=== PATIENT | male | born 1980 | race Caucasian/White ===

== ENCOUNTER 2016-10-31 04:25 | Observation (INO) | payer OTHER ==
[~2016-10-31] VITALS: Ht 182.9 cm; Wt 135.0 kg
--- NOTE | 2016-10-31 04:58 | EMERGENCY ROOM VISIT NOTE ---
History Report prepared by Tala: Cedric English Under the Supervision of: Dr. Andrey Franks M.D. First contact with patient: 04:35 Chief Complaint: CHEST PAIN Stated Complaint: CHEST TIGHTNESS, UNUSUAL FEELING IN ARM,SWEATY History of Present Illness The patient is a 36 year old male who presents to the Emergency Room with complaints of chest pains that the patient began to experience one hour ago. The patient states that he started to feel a discomfort and "tightness" in his chest while he was standing at work this evening. He also notes a "weird" feeling shooting down his right arm. After his chest pain onset he sat down to have a bowel movement and became diaphoretic. He admits to becoming anxious. He denies any history of hypertension, cardiac disease, or diabetes. He is a smoker. 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 A total of 10 systems reviewed and were otherwise negative. Past Medical & Surgical Patient denies any pertinent surgical/family histories. Family History Diabetes mellitus FHx: cancer Social History Marital Status: single Housing Status: lives with family Occupation Status: employed Current/Historical Medications No Active Prescriptions or Reported Meds Allergies Coded Allergies: No Known Allergies (Verified , 10/31/16) Physical Exam Vital Signs Date Time Temp Pulse Resp B/P Pulse Ox O2 Delivery O2 Flow Rate FiO2 10/31/16 06:55 63 10/31/16 06:55 68 16 149/99 97 Room Air 10/31/16 06:38 73 18 156/102 96 Room Air 10/31/16 05:30 65 18 147/99 98 Room Air 10/31/16 05:09 65 18 137/96 96 Room Air 10/31/16 04:42 100 Room Air 10/31/16 04:42 100 Room Air 10/31/16 04:41 66 10/31/16 04:37 62 16 154/99 99 Room Air 10/31/16 04:29 36.5 64 20 180/113 98 Room Air Physical Exam GENERAL: Patient is mildly anxious appearing and in no acute distress. HEENT: No acute trauma, normocephalic atraumatic, mucous membranes moist, no nasal congestion, no scleral icterus. NECK: No stridor, no adenopathy, no meningismus, trachea is midline. LUNGS: No dyspnea. Clear to auscultation and equal bilaterally. No wheeze, no rhonchi. HEART: Regular rate and rhythm. No murmurs, rubs, gallops appreciated. ABDOMEN: Soft, nontender, bowel sounds positive, no masses appreciated, no peritonitis. BACK: No midline tenderness, no CVA tenderness EXTREMITIES: Normal motion all extremities, no cyanosis, no edema. NEUROLOGIC: Alert and oriented, no acute motor or sensory deficits, no focal weakness, cranial nerves grossly intact. SKIN: No rash, no jaundice, no diaphoresis. Medical Decision & Procedures ER Provider Diagnostic Interpretation: Radiology results and stated below per my review and radiologist interpretation: CHEST X-RAY: X ray results are stated below per my interpretation: Chest: 1 view: No infiltrate, no effusion, normal cardiac border. Laboratory Results 10/31/16 04:41 Red Blood Count 5.13, Mean Corpuscular Volume 87.1, Mean Corpuscular Hemoglobin 31.4, Mean Corpuscular Hemoglobin Concent 36.0, Mean Platelet Volume 9.8, Neutrophils (%) (Auto) 41.9, Lymphocytes (%) (Auto) 44.8, Monocytes (%) (Auto) 5.9, Eosinophils (%) (Auto) 6.5, Basophils (%) (Auto) 0.4, Neutrophils # (Auto) 3.34, Lymphocytes # (Auto) 3.57, Monocytes # (Auto) 0.47, Eosinophils # (Auto) 0.52, Basophils # (Auto) 0.03 10/31/16 04:41 Test 10/31/16 04:41 10/31/16 04:46 10/31/16 04:49 10/31/16 06:23 White Blood Count 7.97 K/uL (4.8-10.8) Red Blood Count 5.13 M/uL (4.7-6.1) Hemoglobin 16.1 g/dL (14.0-18.0) Hematocrit 44.7 % (42-52) Mean Corpuscular Volume 87.1 fL (80-100) Mean Corpuscular Hemoglobin 31.4 pg (25-34) Mean Corpuscular Hemoglobin Concent 36.0 g/dl (32-36) Platelet Count 209 K/uL (130-400) Mean Platelet Volume 9.8 fL (7.4-10.4) Neutrophils (%) (Auto) 41.9 % Lymphocytes (%) (Auto) 44.8 % Monocytes (%) (Auto) 5.9 % Eosinophils (%) (Auto) 6.5 % Basophils (%) (Auto) 0.4 % Neutrophils # (Auto) 3.34 K/uL (1.4-6.5) Lymphocytes # (Auto) 3.57 K/uL (1.2-3.4) Monocytes # (Auto) 0.47 K/uL (0.11-0.59) Eosinophils # (Auto) 0.52 K/uL (0-0.5) Basophils # (Auto) 0.03 K/uL (0-0.2) RDW Standard Deviation 41.9 fL (36.4-46.3) RDW Coefficient of Variation 13.0 % (11.5-14.5) Immature Granulocyte % (Auto) 0.5 % Immature Granulocyte # (Auto) 0.04 K/uL (0.00-0.02) Est Creatinine Clear Calc Drug Dose 167.8 ml/min Estimated GFR () 128.1 Estimated GFR (Non- 110.5 BUN/Creatinine Ratio 11.2 (10-20) Calcium Level 9.1 mg/dl (8.5-10.1) Bedside D-Dimer 129 ng/mlFEU (0-450) Bedside Hemoglobin 15.3 g/dl (14.0-18.0) Bedside Hematocrit 45 % (42-52) Bedside Sodium 138 mEq/L (135-144) Bedside Potassium 3.6 mEq/L (3.3-5.0) Bedside Chloride 102 mEq/L (101-112) Bedside Total CO2 25 mEq/l (24-31) Anion Gap 15.0 mmol/L (16-25) Bedside Blood Urea Nitrogen 8 mg/dl (7-18) Bedside Creatinine 0.8 mg/dl (0.6-1.3) Bedside Glucose (other) 106 mg/dl (70-99) Bedside Ionized Calcium (Griselda) 1.15 mmol/l (1.12-1.32) Bedside Troponin I 0.060 ng/ml (0-0.045) Test 10/31/16 06:50 10/31/16 06:55 Laboratory results as reviewed by me. Medications Administered Medications (Trade) Dose Ordered Sig/Guerda Route Start Time Stop Time Status Last Admin Dose Admin Nitroglycerin (Nitrostat Tab) 0.4 mg PRN PRN SL 10/31/16 05:15 11/30/16 05:14 10/31/16 05:19 0.4 MG Ketorolac Tromethamine (Toradol Inj) 30 mg NOW STAT IV 10/31/16 05:28 10/31/16 05:29 DC 10/31/16 05:28 30 MG Aspirin (Aspirin Chew) 324 mg NOW STAT PO 10/31/16 06:42 10/31/16 06:43 DC 10/31/16 06:42 324 MG ECG Indication: chest pain Rate (beats per minute): 60 Rhythm: normal sinus Findings: no acute ischemic change, no ectopy ED Course 0437: The patient was evaluated in room B9. A complete history and physical exam was performed. 0515: Ordered Nitroglycerin 0.4 mg SL 0528: The patient states that the nitroglycerin did not relieve his right elbow pain. 0528: Ordered Toradol 30 mg IV. 0640: Reevaluated the patient. Doing well. Positive trop. Will await Hospitalist evaluation. Medical Decision Differential: Cardiac Ischemia (STEMI, NSTEMI, Unstable Angina, etc), Aortic Dissection, Arrhythmia, Pulmonary Embolism, Pneumonia, Pneumothorax, MSK, Infectious, Pericarditis/Myocarditis, Esophageal Rupture, Gastrointestinal, amongst other pathologies entertained. 36 yr old male overwieght smoker arrives with compalint of right chest pain radiating to right arm after near syncope while having bowel movement. Recent travel thus Dimer done which wnl and I do not feel requires CT PE per [facility]. CXR wnl and no evidence of dissection. Excellent pulses right arm and no swelling thus I do not feel arterial/venous occlusion. Initial EKG normal and trop wnl. Of not SLNTG was given without improvement. Toradol given with improvement. Vitals stable, patient looks well and no other acute findings. No headache, neck pain, weakness, vision changes, etc thus I do not feel neuro imaging indicated. Repeat 90 minute Trop returned elevated. Patient stable. Repeat EKG done reveals similar symptoms to initial. Aspirin given as symptoms not consistent with dissection and patient will come in for cardiac rule out and evaluation. Will hold on empiric Heparinization as trop elevation may be from transient hypotension when he had near-syncope earlier and non-classical ACS symptoms. Impression Primary Impression: Elevated troponin Additional Impressions: Right-sided chest pain Arm paresthesia, right Near syncope Scribe Attestation The scribe's documentation has been prepared under my direction and personally reviewed by me in its entirety. I confirm that the note above accurately reflects all work, treatment, procedures, and medical decision making performed by me. Departure Information Dispostion Home / Self-Care Prescriptions No Active Prescriptions or Reported Meds Referrals [place] Leonardo M.D. (PCP) Patient Instructions My [facility] Problem Qualifiers
[2016-10-31 04:59] LABS: BASO % 0.4 %; BASO ABS # 0.03 K/uL (0-0.2); COMPLETE YES; EOS % 6.5 %; HEMATOCRIT 44.7 % (42-52); IG% 0.5 %; LYMPH % 44.8 %; LYMPH ABS # 3.57 K/uL (1.2-3.4); MEAN CELL VOLUME 87.1 fL (80-100); MEAN CORPUSCULAR HEMOGLOBIN 31.4 pg (25-34); MEAN PLATELET VOLUME 9.8 fL (7.4-10.4); MONO % 5.9 %; NEUT % 41.9 %; PLATELET COUNT 209 K/uL (130-400); RED BLOOD COUNT 5.13 M/uL (4.7-6.1); WHITE BLOOD COUNT 7.97 K/uL (4.8-10.8)
[2016-10-31 05:02] LABS: ISTAT CREATININE 0.8 mg/dl (0.6-1.3); ISTAT HEMOGLOBIN 15.3 g/dl (14.0-18.0); ISTAT IONIZED CALCIUM 1.15 mmol/l (1.12-1.32)
[2016-10-31 05:05] LABS: POINT OF CARE TROPONIN I 0.02 ng/ml (0-0.045)
[2016-10-31 05:15] LABS: BLOOD UREA NITROGEN 10 mg/dl (7-18); BUN/CREATININE RATIO 11.2 (10-20); CALCIUM 9.1 mg/dl (8.5-10.1); CARBON DIOXIDE 28 mmol/L (21-32); CHLORIDE 106 mmol/L (98-107); CREATININE 0.85 mg/dl (0.60-1.40); GLUCOSE 102 mg/dl (70-99); POTASSIUM 3.6 mmol/L (3.5-5.1); SODIUM 142 mmol/L (136-145)
[2016-10-31] MEDS ORDERED: NITROGLYCERIN 0.4 MG SL PER TAB CHARGE SL PRN ×2 (05:15→07:00)
[2016-10-31] MEDS ORDERED: KETOROLAC TROMETHAMINE 30 MG/ML VIAL IV STA (05:28)
[2016-10-31] MEDS ORDERED: ASPIRIN 324 MG CHEW PO STA (06:42)
--- NOTE | 2016-10-31 06:58 | DIAGNOSTIC IMAGING REPORT ---
CHEST ONE VIEW PORTABLE CLINICAL HISTORY: Atypical chest pain COMPARISON STUDY: No previous studies for comparison. FINDINGS: The cardiac and mediastinal contours are normal. There is no evidence of focal pulmonary consolidation. There is no evidence of failure. No pleural effusions are visualized.[ IMPRESSION: No active disease in the chest. Electronically signed by: Jason Brown M.D. 10/31/2016 6:56 AM Dictated Date/Time: 10/31/2016 6:56 AM
[2016-10-31] MEDS ORDERED: KETOROLAC TROMETHAMINE 30 MG/ML VIAL IV PRN (07:00)
[2016-10-31] MEDS ORDERED: ONDANSETRON INJ 2 MG/ML 2 ML VIAL IV PRN (07:00)
[2016-10-31] MEDS ORDERED: ALUMINUM/MAGNESIUM/SIMETH (MAALOX MAX) 30 ML UDC PO PRN (07:00)
[2016-10-31] MEDS ORDERED: POLYETHYLENE (MIRALAX) 17 GM PACK PO PRN (07:00)
[2016-10-31] MEDS ORDERED: MoRPHine SULFATE 2 MG/ML CARP IV PRN (07:00)
[2016-10-31] MEDS ORDERED: ACETAMINOPHEN 325 MG TAB PO PRN (07:00)
[2016-10-31] MEDS ORDERED: MAGNESIUM HYDROXIDE SUSP 30 ML UDC PO PRN (07:00)
[2016-10-31] MEDS ORDERED: MoRPHine SULFATE 4 MG/ML 1 ML CARP\\VIAL IV PRN (07:00)
[2016-10-31] MEDS ORDERED: IV FLUIDS COMPLETED PRN (07:00)
[2016-10-31 07:06] LABS: PROTHROMBIN TIME (PATIENT) 10.7 SECONDS (9.0-12.0)
[2016-10-31 07:28] LABS: C-REACTIVE PROTEIN 0.4 mg/dl (0-0.29); MAGNESIUM 2.1 mg/dl (1.8-2.4)
[2016-10-31 08:30] VITALS: O2SAT 95; Ht 182.9 cm; Wt 135.0 kg
[2016-10-31 11:50] VITALS: BP 128/64; PULSE 56; TEMP 36.8; O2SAT 98
[2016-10-31] MEDS ORDERED: GI COCKTAIL PO ONE (13:00)
[2016-10-31] MEDS ORDERED: ALUMINUM/MAGNESIUM SUSP 18 ML, LIDOCAINE HCL 2% VISCOUS SOLN 6 ML, BARCODE IDENTIFIER 1 EA PO ONE ×2 (13:30)
--- NOTE | 2016-10-31 15:20 | Discharge Instructions ---
Discharge Instructions Date of Service October 31, 2016. Admission Reason for Admission: Elevated Troponin Discharge Discharge Diagnosis / Problem: non cardiac chest pain, elevated troponin, negative stress test Discharge Goals Goal(s): Diagnostic testing, Therapeutic intervention Activity Recommendations Activity Limitations: resume your previous activity . Current Hospital Diet Patient's current hospital diet: Discharge Diet Recommended Diet: Regular Diet Pending Studies Studies pending at discharge: no Medical Emergencies . Who to Call and When: Medical Emergencies: If at any time you feel your situation is an emergency, please call 911 immediately. . Non-Emergent Contact Non-Emergency issues call your: Primary Care Provider . . "Provider Documentation" section prepared by Frank Crane. . District Scout Executive Recommendations District Scout Executive Recommendations: Please stop smoking and begin a moderate exercise program please take over the counter zantac or pepcid for one week to see if symptoms resolve VTE Core Measure Inpt VTE Proph given/why not?: Treatment not indicated
[2016-10-31 15:29] VITALS: BP 141/89; PULSE 72; TEMP 36.7; O2SAT 95
--- NOTE | 2016-10-31 15:35 | CARDIOLOGY CONSULTATION ---
DATE OF CONSULTATION: 10/31/2016 PERTINENT HISTORY: Mr. Chopra is a 36-year-old white male without significant past medical history, admitted earlier today with a chest pain syndrome. This consultation was ordered to assist in his management. The patient claims he was in his usual state of health while at work last evening. He had onset of a "pressure and heaviness" in his chest which radiated to his left shoulder and upper arm. He noticed some nausea and diaphoresis for several minutes and therefore, presented to the Emergency Room for further care. The patient had no other associated symptoms such as shortness of breath or palpitations. The patient has never experienced exertional chest pain previously. Although, not following a routine exercise program, he is actually on daily basis caring for his home and property. Again, he has never experienced exertional chest discomfort or limiting dyspnea. He further denies syncope, presyncope, PND, orthopnea, lower extremity edema, and claudication. Currently, the patient is resting comfortably in bed. Still experiencing a vague discomfort in his chest and left upper extremity. PAST MEDICAL HISTORY: None. MEDICATIONS: 1. Aspirin 81 mg per day. ALLERGIES: None. SOCIAL HISTORY: The patient is single and lives alone. Admits to smoking 1-1/2 pack of cigarettes daily for the last 20 years. Alcohol use is occasional. FAMILY HISTORY: Parents and siblings are alive and well. No history of early coronary artery disease. REVIEW OF SYSTEMS: A 10-point review of systems is negative except for that described above. PHYSICAL EXAMINATION: GENERAL: This is an obese white male lying supine in bed without complaints. VITAL SIGNS: Blood pressure is 122/64 with a regular pulse of 56. Respiratory rate is 18. The patient is afebrile at 36.8 degrees Celsius. Saturation 90% on room air. HEENT: Negative. NECK: Supple with full carotid upstrokes. There are no carotid bruits. Jugular venous pressure is flat at 90 degrees. There is no thyromegaly. CARDIOVASCULAR: Reveals a regular rhythm with a normal S1 and S2. No S3, S4, or murmurs are noted. LUNGS: Clear without rales, rhonchi, or wheezes. ABDOMEN: Soft and nontender without bruits. EXTREMITIES: Reveal intact radial artery pulses bilaterally. There is no peripheral edema. DATA: CBC notes hemoglobin 15.3, hematocrit 45.0, white count 7.9, platelet count 209,000. Electrolytes note a sodium of 138, potassium 3.6, chloride 102, bicarbonate 25, BUN 8, creatinine 0.8, glucose 106. Initial troponin was 0.02 with followup values of 0.06 and 0.067. Two EKGs note sinus rhythm without abnormalities. Chest x-ray shows no acute disease. IMPRESSION: Mr. Keysha arriaga has a history of atypical for classic angina pectoris. However, there is some minor elevation in his troponin I level. This will be investigated further with a stress echocardiogram. PLAN: 1. Agree with addition of aspirin to his medical regimen. 2. Stress echocardiogram. 3. Further recommendations depending on his clinical course.
[2016-10-31] MEDS ORDERED: PERFLUTREN LIPID MICROSPHERE (DEFINITY) IV ONE (15:38)
[2016-10-31 15:51] VITALS: BP 141/89; PULSE 72; TEMP 36.7; O2SAT 95
--- NOTE | 2016-10-31 16:44 | EXERCISE STRESS ECHO ---
*NOTICE TO RECEIVING REPUBLICAN AGENCY This information is strictly Confidential and protected under [place] law. [place] law prohibits you from making any further disclosure of this information unless further disclosure is expressly permitted by the written consent of the person to whom it pertains or is authorized by law. A general authorization for the release of medical or other information is not sufficient for this purpose. Hospital accepts no responsibility if the information is made available to any other person, INCLUDING THE PATIENT. Interpretation Summary * Name: DARIAN DUARTE Study Date: 10/31/2016 01:49 PM BP: 151/90 mmHg * Patient Location: .2E\S\E206\S\1 HR: 56 * : 1980 (M/d/yyyy) Gender: Male Height: 72 in * Age: 36 yrs Ethnicity: CA Weight: 298 lb * Ordering Physician: Frank Crane * Referring Physician: Self, Referred * Performed By: Crystal Rubin RDCS * * Reason For Study: CHEST PAIN, ELEVATED TROPONIN * BSA: 2.5 m2 * -- Conclusions -- * Normal stress echocardiogram at 9.7 METS and a peak heart rate of 87% predicted maximum. * No exercise induced chest pain. * No ECG changes. * Baseline echocardiogram notes normal left ventricular systolic function without wall motion abnormality. Procedure Details * ECHOEX, CPT #52236 * A contrast injection of Definity was performed to improve assessment of LV function. * Contrast was injected into an intravenous site in the left arm. * One vial of Definity ultrasound contrast was diluted in normal saline to a total volume of 10 ml. A total of '5' ml of solution was administered during imaging. * Lot # [id number] of Definity utilized for procedure. * Expiration date OCT 17. * The attending nurse who injected the contrast agent was SUJATA HO RN. Left Ventricle * The left ventricle is grossly normal size. * There is borderline concentric left ventricular hypertrophy. * Ejection Fraction = 55-60%. * Left ventricular systolic function is normal. * Resting wall motion: Normal. Stress wall motion: Appropriate increase in Left ventricular systolic function and decrease in cavity size. No stress induced segmental wall motion abnormalities. Right Ventricle * The right ventricle is grossly normal size. * The right ventricular systolic function is normal as assessed by tricuspid annular plane systolic excursion (TAPSE) (normal >1.5 cm). Atria * Borderline left atrial enlargement. * Right atrial size is normal. * There is no evidence of atrial septal defect, but resolution does not allow assessment for a patent foramen ovale. Mitral Valve * The mitral valve is grossly normal. * There is no mitral valve stenosis. * Significant mitral regurgitation is absent. Tricuspid Valve * The tricuspid valve is not well visualized. * There is no tricuspid stenosis. * Significant tricuspid regurgitation is absent. Aortic Valve * The aortic valve is not well visualized. * The aortic valve opens well. * No hemodynamically significant valvular aortic stenosis. * There is no significant aortic regurgitation. Pulmonic Valve * The pulmonic valve is not well visualized. Great Vessels * The aortic root is normal size. * The pulmonary is not well visualized. Pericardium * There is no pericardial effusion. Stress Parameters * Normal baseline electrocardiogram. * Patient developed a rate related RBBB at 130 bpm. Resolved in recovery phase. MMode 2D Measurements and Calculations IVSd 1.1 cm IVSs 1.6 cm LVIDd 6.0 cm LVIDs 4.5 cm LVPWd 0.90 cm LVPWs 1.3 cm IVS/LVPW 1.2 FS 25.4 % EDV(Teich) 180.5 ml ESV(Teich) 91.6 ml EF(Teich) 49.2 % EDV(cubed) 216.8 ml ESV(cubed) 90.1 ml EF(cubed) 58.5 % % IVS thick 49.6 % % LVPW thick 43.3 % LV mass(C)d 241.6 grams LV mass(C)dI 95.7 grams/m\S\2 LV mass(C)s 257.9 grams LV mass(C)sI 102.2 grams/m\S\2 SV(Teich) 88.9 ml SI(Teich) 35.2 ml/m\S\2 SV(cubed) 126.7 ml SI(cubed) 50.2 ml/m\S\2 Ao root diam 3.6 cm Ao root area 10.1 cm\S\2 LA dimension 3.7 cm LA/Ao 1.0 Doppler Measurements and Calculations MV E max calista 84.9 cm/sec MV A max calista 63.5 cm/sec MV E/A 1.3 MV dec time 0.22 sec Ao V2 max 105.0 cm/sec Ao max PG 4.4 mmHg Ao max PG (full) 1.2 mmHg LV V1 max PG 3.2 mmHg LV V1 max 89.7 cm/sec
--- NOTE | 2016-10-31 17:14 | Discharge Summary ---
Discharge Summary Date of Service October 31, 2016. Discharge Summary Admission Date: October 31, 2016 at 08:08 Discharge Date: October 31, 2016 Discharge Disposition: Home Principal Diagnosis: elevated troponin, negative stress test Consultations: Dr Clancy Medication Reconciliation Medication Profile: No Active Prescriptions or Reported Meds Discharge Exam Review of Systems: Constitutional: No chills, No fever Respiratory: No cough, No sputum Cardiovascular: No chest pain, No orthopnea Abdomen: No nausea, No pain, No vomiting Musculoskeletal: No joint pain, No muscle pain Physical Exam: General Appearance: WD/WN, no apparent distress Neck: supple, no JVD Respiratory/Chest: chest non-tender, lungs clear, normal breath sounds Cardiovascular: regular rate, rhythm, no murmur Abdomen / GI: normal bowel sounds, non tender, soft Neurologic/Psychiatric: alert, oriented x 3 Skin: normal color, no rash Hospital Course 36 M atypical chest pain, minor troponin elevation, did have cardiac stress test that was negative for unstable angina recommend stop smoking limit caffeine h2 juan m otc exercise program follow up with Dr mccoy in a week Total Time Spent: Less than 30 minutes This includes examination of the patient, discharge planning, medication reconciliation, and communication with other providers. Discharge Instructions Please refer to the electronic Patient Visit Report (Discharge Instructions) for additional information.
--- NOTE | 2016-10-31 17:46 | HISTORY & PHYSICAL EXAMINATION ---
DATE OF ADMISSION: 10/31/2016 REASON FOR OBSERVATION: Elevated troponin. HISTORY OF PRESENT ILLNESS: Mr. 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 When he began to have an uncomfortable feeling in his chest. The patient states that it was a "tightness." The patient states that he felt that he wanted to go to the bathroom and he went to the bathroom to have a bowel movement, he became diaphoretic. He said he began being worried about his symptoms. He is a smoker, but has no other health history, takes no medications. He presented to the ED rated unremarkable evaluation, however, did have an elevation in troponin 0.06. Upon my evaluation, the discomfort was almost resolved. He had no other complaints or problems. PAST MEDICAL HISTORY: Unremarkable. MEDICATIONS: None. SOCIAL HISTORY: He smokes 1/2 to 1 pack a day on and off for the last 20 years. He has quit many times but recurred. FAMILY HISTORY: Positive for diabetes and cancer. REVIEW OF SYSTEMS: Ten systems were reviewed and are negative unless listed above. Of note, patient did not have any unusual bowel habits. usually has daily bowel movement and there was nothing unusual about the bowel movement that happened nor did the bowel movement resolved his symptoms. PHYSICAL EXAMINATION: GENERAL: He is a pleasant gentleman. He is in no distress. VITAL SIGNS: Temperature 36.7, pulse 56, respirations 18, BP 128/64, O2 sat 90 on room air. HEENT: PERRL, EOMI. Oropharynx clear. NECK: Without lymphadenopathy. Trachea is midline. HEART: Regular without murmurs, clicks, rubs or gallops. LUNGS: Clear without wheezes or crackles. There is no reproducible discomfort to exam of the ribcage or torso. ABDOMEN: Normoactive bowel sounds, soft, nontender. EXTREMITIES: Without cyanosis, clubbing or edema. LABORATORY DATA: White count of 7, H\\T\\H 16 and 44, platelet count 209, BUN and creatinine is 8.8. His troponin that was repeated 0.06. A repeat 0.067. He had a chest x-ray which was unremarkable. He had a D-dimer which was normal at 129 and he has an EKG showing sinus rhythm. Because of patient's abnormal troponin, cardiology consult was undertaken and patient underwent stress test. ASSESSMENT: Elevated troponin with atypical chest pain symptoms. PLAN: The patient will undergo stress testing. wHICH was eventually negative. The patient was discharged home on recommendations for oral H2 blockers and follow up with Dr. Leonardo in 1 week. The patient was strongly counseled to stop smoking and began an exercise program for weight management. The patient given a work excuse for the remainder of the week. ESTEFANY
[2016-11-01] MEDS ORDERED: ASPIRIN 81 MG ECTAB PO SCH (09:00)
== END 2016-10-31 16:30 | disposition home or self-care (01) ==
LOC: ENRESERVDT → ENRESERVTM → C.EDB 04:28 → CANBEDREQ 07:10 → C.2E 08:08
PROVIDERS: ADMIT Internal Medicine; ATTEND Internal Medicine
DX: R07.89 Other chest pain (principal); R79.89 Other specified abnormal findings of blood chemistry; R55 Syncope and collapse; R20.2 Paresthesia of skin; F17.210 Nicotine dependence, cigarettes, uncomplicated; Z79.82 Long term (current) use of aspirin; Z83.3 Family history of diabetes mellitus

== ENCOUNTER → 2016-12-23 | Outpatient (CLI) | payer OTHER ==
[~2016-12-23] MED LIST: PRED10TA PO
[2016-12-23 13:24] LABS: ALT/SGPT 42 U/L (12-78); AST/SGOT 23 U/L (15-37); BLOOD UREA NITROGEN 9 mg/dl (7-18); BUN/CREATININE RATIO 10.7 (10-20); CALCIUM 9.3 mg/dl (8.5-10.1); CARBON DIOXIDE 23 mmol/L (21-32); CHLORIDE 104 mmol/L (98-107); CHOLESTEROL 199 mg/dl (0-200); CREATININE 0.84 mg/dl (0.60-1.40); GLUCOSE 80 mg/dl (70-99); POTASSIUM 3.7 mmol/L (3.5-5.1); SODIUM 137 mmol/L (136-145); TRIGLYCERIDES 115 mg/dl (0-150); VERY LOW DENSITY LIPOPROT CALC 23 mg/dl
[2016-12-23 13:34] LABS: ALB/GLOB RATIO 1.1 (0.9-2); ALKALINE PHOSPHATASE 61 U/L (45-117); CHOLESTEROL/HDL RATIO 5.4; HDL CHOLESTEROL 37 mg/dl; LDL CHOLESTEROL CALCULATED 139 mg/dl
== END | disposition home or self-care (01) ==
LOC: C.LABPVFM 09:06
PROVIDERS: ATTEND Neuromusculoskeletal Medicine & OMM
DX: Z00.00 Encounter for general adult medical examination without abnormal findings (principal); E66.01 Morbid (severe) obesity due to excess calories; Z72.0 Tobacco use

== ENCOUNTER 2017-03-27 04:46 | Emergency (ER) | payer OTHER ==
[~2017-03-27] VITALS: Ht 182.9 cm; Wt 143.3 kg
[2017-03-27 04:54] VITALS: TEMP 36.8; Ht 182.9 cm; Wt 143.3 kg
--- NOTE | 2017-03-27 05:25 | EMERGENCY ROOM VISIT NOTE ---
History Report prepared by Tala: Noni Olsen Under the Supervision of: Dr. Nereida John M.D. First contact with patient: 04:51 Chief Complaint: SHORTNESS OF BREATH Stated Complaint: SHORT OF BREATH Nursing Triage Summary: Pt with increasing SOB for the past 24 hours. Pt reports cold symptoms and cough. hx bronchitis and pt reports this feels similar. Pt is visibily SOB upon arrival. Pt has inspiratory and expiratory wheezes. EMS gave 125mg solumedrol and duoneb treatment with albuterol History of Present Illness The patient is a 36 year old male who presents to the Emergency Room with complaints of worsening shortness of breath beginning 2 nights ago. The patient states that he has had chest congestion and a productive cough. He also reports that he was extremely fatigued yesterday. The patient denies any fevers. He reports that he smokes half a pack to a whole pack of cigarettes per day and he has been for about 20 years. Source of History: patient Onset: 2 nights ago Position: other (global) Quality: other (shortness of breath ) Associated Symptoms: + cough (productive), + fatigue, No fevers Review of Systems See HPI for pertinent positives & negatives. A total of 10 systems reviewed and were otherwise negative. Past Medical & Surgical Medical Problems: (1) Tobacco dependency Tobacco dependency Family History Diabetes mellitus FHx: cancer Social History Smoking Status: Current Every Day Smoker Marital Status: single Housing Status: lives with family Occupation Status: employed Current/Historical Medications Scheduled Prednisone (Prednisone), 10 MG PO DIRECTED Allergies Coded Allergies: No Known Allergies (Verified , 03/27/17) Physical Exam Vital Signs Date Time Temp Pulse Resp B/P (MAP) Pulse Ox O2 Delivery O2 Flow Rate FiO2 03/27/17 07:44 100 22 151/86 95 03/27/17 05:42 96 23 137/82 99 03/27/17 04:54 Room Air 03/27/17 04:54 114 03/27/17 04:54 Room Air 03/27/17 04:54 36.8 110 23 143/102 91 Room Air Physical Exam Vital signs reviewed. General: Well-appearing male, in no significant distress. HEENT: No scleral icterus, PERRLA, neck supple. Atraumatic. Cardiovascular: Regular rate and rhythm, no extra sounds. Pulmonary: Diffuse wheezing to bilateral lung clark. Slight increased work with breathing. Abdomen: Soft, nontender, nondistended, positive bowel sounds. Musculoskeletal: Atraumatic, no peripheral edema. Neurologic: Patient awake alert and oriented x 3 Skin: Warm, dry, no rash Medical Decision & Procedures ER Provider Diagnostic Interpretation: Chest X-Ray: Pulmonary vascular prominence. No focal lung consolidation. Normal mediastinal silhouette. Medications Administered Medications (Trade) Dose Ordered Sig/Guerda Route Start Time Stop Time Status Last Admin Dose Admin Albuterol/ Ipratropium (Duoneb) 3 ml NOW STAT INH 03/27/17 05:28 03/27/17 05:29 DC 03/27/17 05:38 3 ML Methylprednisolone Sodium Succinate (Solu-Medrol IV) 125 mg NOW STAT IV 03/27/17 05:28 03/27/17 05:29 DC 03/27/17 05:39 125 MG Albuterol/ Ipratropium (Duoneb) 3 ml NOW STAT INH 03/27/17 06:31 03/27/17 06:32 DC 03/27/17 06:39 3 ML Albuterol (Ventolin Hfa Inhaler) 2 puffs NOW STAT INH 03/27/17 06:43 03/27/17 06:44 DC 03/27/17 07:10 2 PUFFS ED Course 0525: Past medical records reviewed. The patient was evaluated in room B2. A complete history and physical examination was performed. 0528: Ordered Methylprednisolone Sodium Succinate 125 mg IV, Duoneb 3 ml INH. 0620: I checked on the patient and he is feeling better. 0631: Ordered Duoneb 3 ml INH. 0645: Upon reevaluation, the patient appeared to have improvement of his symptoms. I discussed findings with him. He verbalized agreement of the treatment plan. He was discharged home. Medical Decision Differential diagnosis: Etiologies such as infections, reactive airway disease, pneumonia, pneumothorax , COPD, CHF, cardiac ischemia, pulmonary embolism, musculoskeletal, gastrointestinal, as well as others were entertained. This patient was evaluated and appeared to be in no significant distress. IV access was obtained and laboratory work was drawn. The patient was medicated with a DuoNeb treatment in route. He was given 125 mg of IV Solu-Medrol and a second DuoNeb treatment. Chest x-ray was performed and is negative for acute process to my interpretation. On reevaluation the patient continued to wheeze. He was given a third DuoNeb treatment. His vital signs have remained stable and his oxygenation is normal on room air. He was advised to stop smoking and to follow-up with his PCP this week. He was given a prescription for prednisone taper and will continue his albuterol inhaler. He will return to the ER for worsening of symptoms or any medical concerns. Medication Reconcilliation Current Medication List: was personally reviewed by me Blood Pressure Screening Patient's blood pressure: Elevated blood pressure Blood pressure disposition: Referred to PCP Impression Primary Impression: Asthma with exacerbation Scribe Attestation The scribe's documentation has been prepared under my direction and personally reviewed by me in its entirety. I confirm that the note above accurately reflects all work, treatment, procedures, and medical decision making performed by me. Departure Information Dispostion Home / Self-Care Prescriptions Prednisone (Prednisone) 10 Mg Tab 10 MG PO DIRECTED, #31 TAB 40 mg for 4 days, 30 mg for 3 days, 20 mg for 2 days, 10 mg for 2 days Prov: Nereida John M.D. 03/27/17 Referrals Luis Trujillo D.O. (PCP) Forms HOME CARE DOCUMENTATION FORM, IMPORTANT VISIT INFORMATION Patient Instructions ED Smoking Cessation, [facility] Additional Instructions Diagnosis: Asthma exacerbation Please stop smoking. Prednisone 40 mg for 4 days, 30 mg for 3 days, 20 mg for 2 days, 10 mg for 2 days. Albuterol 2 puffs every 4 hours as needed for wheezing. Contact your primary care physician today for follow-up as soon as possible. You may need a nebulizer machine. Return to the emergency department for worsening of symptoms or any medical concerns.
[2017-03-27] MEDS ORDERED: METHYLPREDNISOLONE 125 MG VIAL IV STA (05:28)
[2017-03-27] MEDS ORDERED: ALBUT/IPRATROP 3MG/0.5MG NEB 3 ML VIAL INH STA ×2 (05:28→06:31)
--- NOTE | 2017-03-27 06:40 | DIAGNOSTIC IMAGING REPORT ---
CHEST ONE VIEW PORTABLE HISTORY: 36 years-old Male COPD shortness of breath with history of COPD. COMPARISON: Chest radiograph 10/31/2016 TECHNIQUE: Portable upright AP view the chest FINDINGS: Cardiomediastinal and hilar silhouettes are within normal limits. There is no pneumothorax, pleural effusion or focal airspace consolidation. There is no overt pulmonary edema. Lungs are mildly hyperinflated. Bones of the chest appear grossly intact. IMPRESSION: No acute cardiopulmonary process. The above report was generated using voice recognition software. It may contain grammatical, syntax or spelling errors. Electronically signed by: Tristin Lawler M.D. 03/27/2017 6:38 AM Dictated Date/Time: 03/27/2017 6:35 AM
[2017-03-27] MEDS ORDERED: PRED10TA PO (06:42)
[2017-03-27] MEDS ORDERED: ALBUTEROL HFA 8 GM INHALER INH STA (06:43)
[2017-03-27 07:44] VITALS: BP 151/86; PULSE 100; O2SAT 95
== END 2017-03-27 07:44 | disposition home or self-care (01) ==
LOC: EDBD 04:46 → C.EDB 04:47
DX: J45.901 Unspecified asthma with (acute) exacerbation (principal); F17.210 Nicotine dependence, cigarettes, uncomplicated; Z83.3 Family history of diabetes mellitus; Z80.9 Family history of malignant neoplasm, unspecified; Z79.899 Other long term (current) drug therapy